=== PATIENT | male | born 1960 | race Caucasian/White ===

== ENCOUNTER 2024-02-10 10:13 | Inpatient (IN) | payer SELFPAY ==
[2024-02-10 10:43] LABS: #Basophils 0.15 10x3/uL (0.0-0.2); %Basophils 1.1 % (0.0-1.0); %Eosinophils 2.3 % (0.0-10.0); %Lymphocytes 18.5 % (21.0-51.0); %Monocytes 10.5 % (0.0-10.0); %Neutrophils 66.8 % (42.0-75.0); Hematocrit 37.7 % (42.0-52.0); Mean Corpuscular HGB CONC 34.5 g/dL (32.0-36.0); Mean Corpuscular Hemoglobin 31.8 pg (27.0-31.0); Mean Corpuscular Volume 92.2 fL (78.0-98.0); Mean Platelet Volume 10.3 fL (7.4-10.4); Platelet Count 393 10x3/uL (130-400); Red Blood Cell (RBC) Count 4.09 mill/uL (4.70-6.10)
[2024-02-10] MEDS ORDERED: Furosemide 40 MG (4 mL) VIAL ONE (10:43)
[2024-02-10] MEDS ORDERED: Lorazepam 2 MG/ML VIAL ONE (10:44)
[2024-02-10 11:21] LABS: Critical Call Chem-Lactate NUR.ERQ
[2024-02-10] MEDS ORDERED: Iopamidol-370 76% 500 ML MDV (1 ML CHARGE) ONE (11:22)
[2024-02-10 11:47] LABS: ALT (SGPT) 13 U/L (8-55); AST (SGOT) 16 U/L (5-34); Albumin 3.8 g/dL (3.4-4.8); Alkaline Phosphatase 75 U/L (40-110); Anion Gap 21 mmol/L (10-20); BUN (Urea Nitrogen) 13 mg/dL (8.4-25.7); Bilirubin, Total 0.6 mg/dL (0.2-1.2); Calc. Creatinine Clearance 0 mL/min (70-130); Calcium 9.1 mg/dL (7.8-10.44); Carbon Dioxide 16 mmol/L (23-31); Chloride 97 mmol/L (98-107); Estimated GFR 68; Globulin 3.2 g/dL (2.4-3.5); Glucose 369 mg/dL (80-115); Lipase 17 U/L (8-78); Potassium 3.1 mmol/L (3.5-5.1); Sodium 131 mmol/L (136-145)
[2024-02-10 11:52] LABS: Troponin I 0.048 ng/mL (< 0.028)
[2024-02-10] MEDS ORDERED: Acetaminophen 325 MG TAB PO PRN (13:46)
[2024-02-10] MEDS ORDERED: Ondansetron ODT 4 MG TAB PO PRN (13:46)
[2024-02-10] MEDS ORDERED: Ondansetron PF 4 MG/2 ML Vial IVP PRN (13:46)
[2024-02-10] MEDS ORDERED: Insulin Lispro 100 UNIT/ML 10 ML VIAL SC PRN ×2 (14:10)
[2024-02-10] MEDS ORDERED: Glucagon 1 MG/ML KIT IM PRN (14:10)
[2024-02-10] MEDS ORDERED: Dextrose 50% Abboject 50 ML SYRINGE SLOW IVP PRN (14:10)
[2024-02-10] MEDS ORDERED: Dextrose 5% in Water 1,000 ML IV PRN (14:10)
[2024-02-10] MEDS ORDERED: Labetalol HCl 100 MG/20 ML VIAL SLOW IVP PRN (14:33)
[2024-02-10] MEDS ORDERED: Ipratropium/Albuterol 3 ML NEB NEB PRN (14:33)
[2024-02-10 14:38] LABS: Lactic Acid 1.72 mmol/L (0.5-2.2)
[2024-02-10 14:50] LABS: Critical Call Chem Troponin I NUR.KR7; Troponin I 1.167 ng/mL (< 0.028)
[2024-02-10 15:40] LABS: Magnesium 1.8 mg/dL (1.6-2.6)
[2024-02-10] MEDS: Aspirin 325 MG TAB PO SCH (16:57)
[2024-02-10] MEDS: Potassium Chloride 20 MEQ TAB PO SCH (16:58)
[2024-02-10] MEDS: Potassium Chloride 20 MEQ in Premix 1 BAG IVPB SCH (16:58)
[2024-02-10] MEDS: Spironolactone 25 MG TAB PO SCH (18:21)
[2024-02-10] MEDS: Furosemide 40 MG (4 mL) VIAL SLOW IVP SCH (18:21)
[2024-02-10] MEDS: Magnesium Sulfate In Water 4 GM in Premix 1 BAG IVPB SCH (18:38)
[2024-02-10 18:40] LABS: Troponin I 9.101 ng/mL (< 0.028)
[2024-02-10 18:59] VITALS: BMI 23.6
[2024-02-10] MEDS: Famotidine/PF 20 mg/2ml Vial SLOW IVP SCH (20:23)
[2024-02-10] MEDS: Communication Order-Pharmacy FS ONE (20:23)
[2024-02-10] MEDS: Famotidine 20 MG TAB PO SCH (20:27)
[2024-02-10] MEDS: Enoxaparin 80 MG (0.8 mL) SYRINGE SC SCH (20:27)
[2024-02-10] MEDS: Nitroglycerin 2% Ointment 1 INCH/1 GM Packet TOP SCH (20:27)
[2024-02-10] MEDS: Atorvastatin Calcium 40 MG TAB PO SCH (20:27)
[2024-02-10] MEDS ORDERED: Sacubitril 24MG/Valsartan 26 MG TAB PO SCH (21:00)
[2024-02-10 21:54] LABS: Anion Gap 20 mmol/L (10-20); BUN (Urea Nitrogen) 13 mg/dL (8.4-25.7); Calc. Creatinine Clearance 93 mL/min (70-130); Calcium 9.5 mg/dL (7.8-10.44); Carbon Dioxide 21 mmol/L (23-31); Chloride 99 mmol/L (98-107); Estimated GFR 97; Glucose 138 mg/dL (80-115); Potassium 3.8 mmol/L (3.5-5.1); Sodium 136 mmol/L (136-145)
[2024-02-10 22:01] LABS: Bacteria/HPF None Seen HPF (None Seen); Bilirubin Negative (Negative); Blood, Urine Negative (Negative); CAUTI Indications for Culture Pelvic or flank pain; Clarity Clear (Clear); Glucose, Urine (Dipstick) Normal (Negative); Ketone, Urine Negative (Negative); Leukocyte Negative Leu/uL (Negative); Nitrite Negative (Negative); Protein, Urine (Dipstick) Negative (Neg-Trace); RBC/HPF None Seen HPF (0-3); Specific Gravity, Urine 1.007 (1.002-1.036); Squamous Epithelial None Seen HPF (0-3); Urobilinogen Normal mg/dL (Less than 2); WBC/HPF 0-3 HPF (0-3); pH, Urine 6.5 (5.0-9.0)
[2024-02-10 22:08] LABS: Urine Culture Reflex No No
[2024-02-10 22:12] LABS: Amphetamine Not Detected (NotDetected); Barbiturates Screen Not Detected (NotDetected); Benzodiazepine Screen Not Detected (NotDetected); Cocaine Metabolite Screen Not Detected (NotDetected); Methadone Not Detected (NotDetected); Methamphetamine Not Detected (NotDetected); Opiate Screen Not Detected (NotDetected); Oxycodone Screen Not Detected (NotDetected); Phencyclidine (PCP) Not Detected (NotDetected); THC/Cannabinoid Screen Not Detected (NotDetected); Tricyclic Screen Not Detected (NotDetected)
[2024-02-10 22:20] LABS: Legionella Urinary Ag Negative (Negative); Strep pneumo Urine Ag NEGATIVE (NEGATIVE)
[2024-02-10 22:38] LABS: Influenza A by NAA Not Detected (NotDetected); Influenza B by NAA Not Detected (NotDetected); RSV by NAA Not Detected (NotDetected); SARS-CoV-2 NAA Rapid Test Not Detected (NotDetected)
[2024-02-11] MEDS: Gabapentin 300 MG CAP PO SCH (01:13)
[2024-02-11 04:31] LABS: #Basophils 0.08 10x3/uL (0.0-0.2); %Basophils 0.5 % (0.0-1.0); %Eosinophils 0.9 % (0.0-10.0); %Lymphocytes 10.6 % (21.0-51.0); %Monocytes 10.4 % (0.0-10.0); %Neutrophils 77.2 % (42.0-75.0); Hematocrit 34.5 % (42.0-52.0); Mean Corpuscular HGB CONC 34.8 g/dL (32.0-36.0); Mean Corpuscular Hemoglobin 32.1 pg (27.0-31.0); Mean Corpuscular Volume 92.2 fL (78.0-98.0); Mean Platelet Volume 10.4 fL (7.4-10.4); Platelet Count 367 10x3/uL (130-400); Red Blood Cell (RBC) Count 3.74 mill/uL (4.70-6.10)
[2024-02-11 04:32] LABS: Actual Bicarbonate (HCO3v) 24.3 mEq/L (22-28); Base Excess 1.1 mEq/L (-2.0 to +3.0); Calcium, Ionized (venous) 1.04 mmol/L (1.16-1.32); Chloride (VBG) 99 mmol/L (98-106); Hematocrit-VBG 38 % (42.0-52.0); Hemoglobin (Hb) 12.9 g/dL (12.6-17.4); Potassium (VBG) 3.78 mmol/L (3.70-5.30); Sodium 134 mmol/L (133-146)
[2024-02-11 04:44] LABS: Hemoglobin A1c 6.6 % (4.0-6.0)
[2024-02-11 04:46] LABS: ALT (SGPT) 18 U/L (8-55); AST (SGOT) 50 U/L (5-34); Albumin 3.6 g/dL (3.4-4.8); Alkaline Phosphatase 65 U/L (40-110); Anion Gap 14 mmol/L (10-20); BUN (Urea Nitrogen) 17 mg/dL (8.4-25.7); Bilirubin, Direct 0.3 mg/dL (0.1-0.3); Bilirubin, Total 0.6 mg/dL (0.2-1.2); Calc. Creatinine Clearance 86 mL/min (70-130); Calcium 9.1 mg/dL (7.8-10.44); Carbon Dioxide 22 mmol/L (23-31); Cardiac Risk 5.6 (Less than 4.5); Chloride 103 mmol/L (98-107); Cholesterol 161 mg/dl (< 200 Desired); Estimated GFR 95; Glucose 136 mg/dL (80-115); HDL Cholesterol 29 mg/dL (>60 Neg Risk); LDL Cholesterol, Calculated 108 mg/dL; Magnesium 2.3 mg/dL (1.6-2.6); Potassium 3.8 mmol/L (3.5-5.1); Protein, Total 6.7 g/dL (5.8-8.1); Sodium 135 mmol/L (136-145); Triglycerides 118 mg/dL (Less than 150)
[2024-02-11 04:50] LABS: Troponin I 7.468 ng/mL (< 0.028)
[2024-02-11] MEDS: Furosemide 40 MG (4 mL) VIAL SLOW IVP SCH (05:22)
[2024-02-11] MEDS: Aspirin Chewable 81 MG TAB PO SCH (07:57)
[2024-02-11] MEDS: Nicotine 14 MG PATCH TD SCH (07:57)
[2024-02-11] MEDS: Spironolactone 25 MG TAB PO SCH (07:57)
[2024-02-11] MEDS ORDERED: Enoxaparin 40 MG (0.4 mL) SYRINGE SC SCH (09:00)
[2024-02-11 12:20] LABS: Critical Call Chem Troponin I RESULT DECREASING
[2024-02-11] MEDS: Furosemide 20 MG (2 mL) VIAL SLOW IVP SCH (14:18)
[2024-02-11] MEDS: Sacubitril 24MG/Valsartan 26 MG TAB PO SCH (20:22)
[2024-02-12 04:05] LABS: #Basophils 0.11 10x3/uL (0.0-0.2); %Eosinophils 2.1 % (0.0-10.0); %Lymphocytes 17.7 % (21.0-51.0); %Neutrophils 66.9 % (42.0-75.0); Hematocrit 35.9 % (42.0-52.0); Hemoglobin 12.6 g/dL (14.0-18.0); Mean Corpuscular HGB CONC 35.1 g/dL (32.0-36.0); Mean Corpuscular Hemoglobin 31.6 pg (27.0-31.0); Mean Platelet Volume 10.8 fL (7.4-10.4); Platelet Count 331 10x3/uL (130-400); RBC Distribution Width 12.6 % (11.5-14.5); Red Blood Cell (RBC) Count 3.99 mill/uL (4.70-6.10)
[2024-02-12 04:20] LABS: Anion Gap 15 mmol/L (10-20); BUN (Urea Nitrogen) 18 mg/dL (8.4-25.7); Calc. Creatinine Clearance 79 mL/min (70-130); Calcium 8.7 mg/dL (7.8-10.44); Carbon Dioxide 25 mmol/L (23-31); Chloride 97 mmol/L (98-107); Estimated GFR 86; Glucose 128 mg/dL (80-115); Magnesium 1.8 mg/dL (1.6-2.6); Potassium 3.9 mmol/L (3.5-5.1); Sodium 133 mmol/L (136-145)
[2024-02-12 04:29] LABS: Troponin I 3.031 ng/mL (< 0.028)
[2024-02-12] MEDS: Carvedilol 3.125 MG TAB PO SCH (17:44)
[2024-02-12] MEDS: Sacubitril 24MG/Valsartan 26 MG TAB PO SCH (20:52)
[2024-02-13] MEDS ORDERED: Sodium Chloride 0.65% Nasal 44 ML BOT EA NARE PRN (01:15)
[2024-02-13 04:27] LABS: #Basophils 0.11 10x3/uL (0.0-0.2); %Eosinophils 1.9 % (0.0-10.0); %Lymphocytes 15.7 % (21.0-51.0); %Monocytes 14.2 % (0.0-10.0); %Neutrophils 66.9 % (42.0-75.0); Hematocrit 40.5 % (42.0-52.0); Hemoglobin 14.1 g/dL (14.0-18.0); Mean Corpuscular HGB CONC 34.8 g/dL (32.0-36.0); Mean Corpuscular Hemoglobin 31.1 pg (27.0-31.0); Mean Corpuscular Volume 89.4 fL (78.0-98.0); Mean Platelet Volume 10.8 fL (7.4-10.4); Platelet Count 379 10x3/uL (130-400); RBC Distribution Width 12.5 % (11.5-14.5); Red Blood Cell (RBC) Count 4.53 mill/uL (4.70-6.10)
[2024-02-13 04:37] LABS: Anion Gap 13 mmol/L (10-20); BUN (Urea Nitrogen) 16 mg/dL (8.4-25.7); Calc. Creatinine Clearance 75 mL/min (70-130); Calcium 9.3 mg/dL (7.8-10.44); Carbon Dioxide 27 mmol/L (23-31); Chloride 98 mmol/L (98-107); Estimated GFR 81; Glucose 150 mg/dL (80-115); Magnesium 1.9 mg/dL (1.6-2.6); Potassium 3.2 mmol/L (3.5-5.1); Sodium 135 mmol/L (136-145)
[2024-02-13] MEDS: Potassium Chloride 20 MEQ TAB PO SCH (08:52)
[2024-02-13] MEDS ORDERED: Iopamidol 370 76% 100 ML VIAL ONE (15:00)
[2024-02-14 05:39] LABS: #Basophils 0.09 10x3/uL (0.0-0.2); %Basophils 0.8 % (0.0-1.0); %Eosinophils 2.3 % (0.0-10.0); %Lymphocytes 13.6 % (21.0-51.0); %Monocytes 13.9 % (0.0-10.0); Hemoglobin 15.1 g/dL (14.0-18.0); Mean Corpuscular HGB CONC 35.1 g/dL (32.0-36.0); Mean Corpuscular Hemoglobin 30.9 pg (27.0-31.0); Mean Corpuscular Volume 88.1 fL (78.0-98.0); Mean Platelet Volume 10.4 fL (7.4-10.4); Platelet Count 371 10x3/uL (130-400); RBC Distribution Width 12.5 % (11.5-14.5); Red Blood Cell (RBC) Count 4.88 mill/uL (4.70-6.10)
[2024-02-14 05:53] LABS: Anion Gap 13 mmol/L (10-20); BUN (Urea Nitrogen) 15 mg/dL (8.4-25.7); Calc. Creatinine Clearance 89 mL/min (70-130); Calcium 9.2 mg/dL (7.8-10.44); Carbon Dioxide 22 mmol/L (23-31); Chloride 102 mmol/L (98-107); Estimated GFR 96; Glucose 159 mg/dL (80-115); Magnesium 1.8 mg/dL (1.6-2.6); Potassium 3.8 mmol/L (3.5-5.1); Sodium 133 mmol/L (136-145)
[2024-02-14] MEDS ORDERED: Communication Order-Pharmacy FS SCH (06:00)
[2024-02-14] MEDS ORDERED: Nitroglycerin 50 MG/250 ML BOT 250 ML ONE (06:44)
[2024-02-14] MEDS ORDERED: Heparin 10,000 UNITS/ 10 ML VIAL ONE ×2 (06:44→08:43)
[2024-02-14] MEDS ORDERED: Verapamil 5 MG/2 ML VIAL ONE (06:44)
[2024-02-14] MEDS ORDERED: Adenosine 6 mg (2 mL) VIAL ONE (06:44)
[2024-02-14] MEDS: Sodium Chloride 0.9% 1,000 ML IV SCH ×2 (07:03→10:20)
[2024-02-14] MEDS ORDERED: Midazolam HCl 2 mg/2 ml Vial ONE (08:01)
[2024-02-14] MEDS ORDERED: fentaNYL 50 mcg/mL 1 mL Vial ONE (08:01)
[2024-02-14] MEDS ORDERED: Atropine Sulfate 1 mg/10 ml Syringe ONE (08:04)
[2024-02-14] MEDS ORDERED: Iopamidol 370 76% 100 ML VIAL ONE (10:22)
[2024-02-15 04:11] LABS: #Basophils 0.06 10x3/uL (0.0-0.2); %Basophils 0.6 % (0.0-1.0); %Eosinophils 2.4 % (0.0-10.0); %Lymphocytes 12.9 % (21.0-51.0); %Monocytes 12.8 % (0.0-10.0); Hematocrit 38.4 % (42.0-52.0); Hemoglobin 13.5 g/dL (14.0-18.0); Mean Corpuscular HGB CONC 35.2 g/dL (32.0-36.0); Mean Corpuscular Hemoglobin 31.8 pg (27.0-31.0); Mean Corpuscular Volume 90.4 fL (78.0-98.0); Mean Platelet Volume 10.6 fL (7.4-10.4); Platelet Count 330 10x3/uL (130-400); RBC Distribution Width 12.8 % (11.5-14.5); Red Blood Cell (RBC) Count 4.25 mill/uL (4.70-6.10)
[2024-02-15 05:23] LABS: ALT (SGPT) 90 U/L (8-55); AST (SGOT) 71 U/L (5-34); Albumin 3.6 g/dL (3.4-4.8); Alkaline Phosphatase 68 U/L (40-110); Anion Gap 13 mmol/L (10-20); BUN (Urea Nitrogen) 12 mg/dL (8.4-25.7); Bilirubin, Total 0.5 mg/dL (0.2-1.2); Calc. Creatinine Clearance 81 mL/min (70-130); Calcium 8.9 mg/dL (7.8-10.44); Carbon Dioxide 23 mmol/L (23-31); Chloride 101 mmol/L (98-107); Estimated GFR 87; Globulin 2.9 g/dL (2.4-3.5); Glucose 219 mg/dL (80-115); Magnesium 1.9 mg/dL (1.6-2.6); Potassium 3.7 mmol/L (3.5-5.1); Protein, Total 6.5 g/dL (5.8-8.1); Sodium 133 mmol/L (136-145)
[2024-02-15 14:52] VITALS: BMI 23.7
[2024-02-15 16:48] VITALS: BP 146/83; TEMP 97.4
== END 2024-02-15 16:54 | disposition home or self-care (01) | DRG 280 ==
LOC: SUATTDRO 10:13 → ERS 10:13 → IMCU/EMU 13:30 → PCU 02-11 09:15
PROVIDERS: ADMIT Family Medicine; ATTEND Student in an Organized Health Care Education/Training Program
PROC: 4A023N7 Measurement of Cardiac Sampling and Pressure, Left Heart, Percutaneous Approach (ICD-10-PCS; principal; 2024-02-14)
PROC: B2111ZZ Fluoroscopy of Multiple Coronary Arteries using Low Osmolar Contrast (ICD-10-PCS; 2024-02-14)
PROC: B2151ZZ Fluoroscopy of Left Heart using Low Osmolar Contrast (ICD-10-PCS; 2024-02-14)
PROC: 4A033BC Measurement of Arterial Pressure, Coronary, Percutaneous Approach (ICD-10-PCS; 2024-02-14)
DX: I11.0 Hypertensive heart disease with heart failure (principal); I50.23 Acute on chronic systolic (congestive) heart failure; I21.4 Non-ST elevation (NSTEMI) myocardial infarction; J96.01 Acute respiratory failure with hypoxia; E87.1 Hypo-osmolality and hyponatremia; E87.20 Acidosis, unspecified; E03.9 Hypothyroidism, unspecified; E78.00 Pure hypercholesterolemia, unspecified; J44.9 Chronic obstructive pulmonary disease, unspecified; F17.210 Nicotine dependence, cigarettes, uncomplicated; I44.7 Left bundle-branch block, unspecified; E87.6 Hypokalemia; E83.42 Hypomagnesemia; D72.829 Elevated white blood cell count, unspecified; E11.51 Type 2 diabetes mellitus with diabetic peripheral angiopathy without gangrene; I25.10 Atherosclerotic heart disease of native coronary artery without angina pectoris
CPT/HCPCS: 0241U; 36415; 36416; 71045; 71275; 74177; 75635; 80048; 80053; 80061; 80076; 80306; 81001; 82805; 83036; 83605; 83690; 83735; 83880; 84145; 84443; 84484; 85025; 85347; 85379; 86850; 86900; 86901; 87040; 87449; 87899; 93005; 93010; 93306; 93458; 93571; 93798; 93799; 93970; 94660; 94760; 96374; 96375; 99152; 99153; C1769; C1887; C1894; J0153; J0461; J1644; J1650; J1815; J1940; J2060; J2250; J3010; J3475; J3480; Q9967